=== PATIENT | male | born 1995 | race Caucasian/White ===

== ENCOUNTER → 2021-06-01 | Day surgery (SDC) | payer OTHER ==
[~2021-06-01] VITALS: Ht 180.3 cm; Wt 209.0 kg
[~2021-06-01] MED LIST: IV RINGERS,LACTATED 1000ML 1,000 ML IV ONE; LIDOCAINE 2% PF 5 ML VIAL. ONE; LISD30TA PO; PROPOFOL 10 MG/ML (20ML) VIAL. IV ONE
[2021-06-01 07:06] VITALS: BP 122/62
[2021-06-01 08:18] VITALS: BP 118/64
--- NOTE | 2021-06-01 21:22 | HP ---
ADMIT DATE: 06/01/2021 REFERRING PHYSICIAN: Dr. Jesus. REASON: Family history of colon cancer. HISTORY OF PRESENT ILLNESS: A 25-year-old male whose past medical history is significant for attention deficit disorder with a family history of colon cancer, whose father at 38, seen for interval exam. Colonoscopy approximately 5 years ago was unrevealing at that time. Denies any change in bowel habits, bleeding, diarrhea or constipation. Weight and appetite are stable. He is otherwise without additional complaints. PAST MEDICAL HISTORY: ADHD and an osteoma of the femur. ALLERGIES: None. MEDICATIONS: Vyvanse. FAMILY HISTORY: Significant for colon cancer. His father at the age of 38. SOCIAL HISTORY: Social drinker, nonsmoker. PAST SURGICAL HISTORY: Significant for an ACL repair. REVIEW OF SYSTEMS: Per records. PHYSICAL EXAMINATION: GENERAL: Reveals a well-nourished, well-developed male who is alert, cooperative, in no acute distress. VITAL SIGNS: Temperature is 97.1, pulse 67, respirations 20. LUNGS: Clear. CARDIOVASCULAR: Reveals an S1, S2, without S3, S4 or appreciable murmur. ABDOMEN: Reveals a soft abdomen, normal bowel sounds, without appreciable hepatosplenomegaly. EXTREMITIES: Reveals no cyanosis, clubbing or edema. IMPRESSION: Colorectal screening is warranted at this time, with family history. Risks and benefits were discussed. The patient understands perforation and is willing to proceed at this time. JING DR: Yeny TID: [id number]
== END | disposition home or self-care (01) ==
LOC: ENDOS 06:37
PROVIDERS: ATTEND Internal Medicine Gastroenterology
DX: Z12.11 Encounter for screening for malignant neoplasm of colon (principal); K64.0 First degree hemorrhoids; K63.89 Other specified diseases of intestine; F90.9 Attention-deficit hyperactivity disorder, unspecified type; Z80.0 Family history of malignant neoplasm of digestive organs; Z79.899 Other long term (current) drug therapy; Z98.890 Other specified postprocedural states; Z72.89 Other problems related to lifestyle
CPT/HCPCS: 45378; J2704